=== PATIENT | female | born 1965 | race Caucasian/White ===

== ENCOUNTER → 2020-09-21 14:27 | Outpatient (POV) | payer MEDICARE, SELFPAY ==
[2020-09-21 14:54] VITALS: BP 187/99; PULSE 67; RESP 20; O2SAT 98; BMI 32.1
--- NOTE | 2020-09-25 08:40 | [facility].PMCON ---
Assessment and Plan (1) Post laminectomy syndrome Status: Chronic Category: Medical Code(s): M96.1 - Postlaminectomy syndrome, not elsewhere classified (2) Degenerative joint disease (DJD) of lumbar spine Status: Chronic Category: Medical Code(s): M47.816 - Spondylosis without myelopathy or radiculopathy, lumbar region - Assessment and plan all Dx Assessment and Plan for all problems:: Patient is uninterested in anything that we offer her at this clinic. I did give her information on a spinal cord stimulator and pain pump. She states in her previous clinics they encouraged her to move in this direction as well. Patient is uninterested in that stating that she would prefer to stay on Nucynta. Patient will be seeking out other pain clinics at this time. Dr. Yang has reviewed this note and agrees with this plan of care. This note was dictated using voice recognition software and may contain errors or omissions HPI - Data of Consult Consult date: 09/25/20 Requesting Physician: Ivette Crawley APRN Primary Care Provider: Referral Provider, MD - Consult Narrative Reason for consult: Back pain History of present illness: Ms. Guzmán is a 55 year old female who presents today for consultation in regards to her low back pain. Patient has had multiple surgeries. She rates her pain an 8 out of 10. Patient has seen multiple pain doctors in the past. Currently she is on Nucynta. Patient states that her dosage is too low. Patient would like an increase in this. I discussed with her that we do not do medication management. She states that this is crap . Patient states that she was under the impression that she would be receiving medications at today's visit. At this point I discussed with her that she needs to discuss with her primary care physician in regard to a differing pain clinic. CC: Ivette Crawley APRN [facility] History I have reviewed the patient's past medical history: Yes Medical History: Reports:: Hyperlipidemia, Hypertension Denies:: Cancer, Diabetes Mellitus Type 1, Diabetes Mellitus Type 2, MRSA *Have you ever received a pneumonia vaccine?: Yes *Have you received a flu vaccine this season?: Yes Other Surgeries: Yes: Other (uterine ablation, left ankle) Amputation: No Fractures: No - *Social History Smoking Status: Current every day smoker Tobacco Type: cigarettes # Packs/Day (cigarettes): 1 Alcohol Intake: never *Occupational Status:: unemployed Housing: house Household Members: other *Travel in the last 8 weeks: None Family Hx:: Other Review of Systems - Review of Systems ROS General: no recent weight change, no fever, no sleep disturbances Respiratory: no cough, no shortness of air, no recurring pulmonary infections Cardiovascular/Peripheral Vascular: No chest pain, No palpitations, no edema, no shortness of breath. Gastrointestinal: no new onset incontinence, normal bowel movements reported Genitourinary: no new onset incontinence Musculoskeletal: Back pain, leg pain Psychiatric: normal mood/ affect Neurological: [denies new onset weakness in extremities], [denies new onset balance issues] Meds Home Medications Medication Instructions Recorded Confirmed Type Aspirin [Aspirin 81mg EC Tab] 81 mg PO DAILY 09/21/20 09/21/20 History Atorvastatin Calcium [Lipitor 40mg 40 mg PO HS 09/21/20 09/21/20 History Tab] Diclofenac Sodium [Voltaren 100gm 1 applicatio TP DAILY 09/21/20 09/21/20 History Topical Gel] Pantoprazole Sodium 40 mg PO BID 09/21/20 09/21/20 History Sertraline HCl 100 mg PO DAILY 09/21/20 09/21/20 History Sucralfate [Sucralfate 1gm 1 gm PO ACHS 09/21/20 09/21/20 History Tab] Tapentadol HCl [Nucynta] 50 mg PO QID 09/21/20 09/21/20 History Valacyclovir HCl [Valacyclovir] 500 mg PO DAILY 09/21/20 09/21/20 History Allergies Allergy/AdvReac Type Severity Reaction Status Date / Time No Known Allergies Allergy Verified 09/21/20
== END ==
PROVIDERS: Visit Provider Clinical Nurse Specialist Family Health
DX: M96.1 Postlaminectomy syndrome, not elsewhere classified (principal); M47.816 Spondylosis without myelopathy or radiculopathy, lumbar region
CPT/HCPCS: 99202; G0463